=== PATIENT | female | born 1980 | race African-American/Black ===

== ENCOUNTER 2018-08-24 09:27 | Emergency (ER) | payer OTHER ==
[2018-08-24 09:47] VITALS: BP 120/81; PULSE 90; TEMP 98.7; BMI 36.0
--- NOTE | 2018-08-24 10:44 | PDOC ---
History of Present Illness - General Chief Complaint: Pain Stated Complaint: PAIN Time Seen by Provider: 08/24/18 10:10 - History of Present Illness Initial Comments: 08/24/18 10:45 The patient is a 38 year old female with no significant PMH who presents to the emergency department with abdominal bloating for the past three months. The patient notes the abdominal bloating is not exacerbated with eating. The patient states she initially had some nausea at the onset of this abdominal bloating that has since resolved for 2 months. She denies any abdominal pain. Patient reports gaining 10-15 pounds over the past two months but states the bloating is unusual for her. Patient denies starting any new diets. Patient had a home which was negative. Patient also had a negative test at the [facility] on 07/29/18. Patient recently saw her PCP for these symptoms and was referred to [facility] [facility]. The [facility] TRAINING REPRESENTATIVE did a pelvic sonogram on 08/10/18 which showed hetergenous echogenity of the uterus but was otherwise normal (pt has report). Last bowel movement was this morning, and was normal. Patient's last menstrual period was 08/13/18. Patient denies any abdominal surgeries in the past. No change in severity or quality of the distention recently. She presents today as she is concerned she is and her home test may not be accurate. The patient denies chest pain, shortness of breath, headache and dizziness. Denies fever, chills, nausea, vomit, diarrhea and constipation. Denies dysuria, frequency, urgency and hematuria. Allergies: NKA Past surgical history: elective . Social history: No reported alcohol, drug, or cigarette use. PCP: [facility]. Past History - Past Medical History Allergies/Adverse Reactions: Allergies Allergy/AdvReac Type Severity Reaction Status Date / Time No Known Allergies Allergy Verified 08/24/18 09:44 Home Medications: Ambulatory Orders No Home Medications 0 dose .ROUTE UTDICT 02/12/13 COPD: No - Immunization History Td Vaccination: No - Suicide/Smoking/Psychosocial Hx Smoking Status: No Smoking History: Never smoked Number of Cigarettes Smoked Daily: 0 Drug/Substance Use Hx: No Substance Use Type: None Review of Systems - Review of Systems Comments:: 08/24/18 10:53 GENERAL/CONSTITUTIONAL: No fever or chills. No weakness. HEAD, EYES, EARS, NOSE AND THROAT: No change in vision. No ear pain or discharge. No sore throat. GASTROINTESTINAL: No nausea, vomiting, diarrhea or constipation. (+) abdominal bloating GENITOURINARY: No dysuria, frequency, or change in urination. CARDIOVASCULAR: No chest pain or shortness of breath. RESPIRATORY: No cough, wheezing, or hemoptysis. MUSCULOSKELETAL: No joint or muscle swelling or pain. No neck or back pain. SKIN: No rash NEUROLOGIC: No headache, vertigo, loss of consciousness, or change in strength/ sensation. ENDOCRINE: No increased thirst. No abnormal weight change. HEMATOLOGIC/LYMPHATIC: No anemia, easy bleeding, or history of blood clots. ALLERGIC/IMMUNOLOGIC: No hives or skin allergy. *Physical Exam - Vital Signs Last Vital Signs Temp Pulse Resp BP Pulse Ox 98.7 F 90 18 120/81 99 08/24/18 09:44 08/24/18 09:44 08/24/18 09:44 08/24/18 09:44 08/24/18 09:44 - Physical Exam Comments: 08/24/18 10:55 GENERAL: Awake, alert, and fully oriented, in no acute distress HEAD: No signs of trauma EYES: PERRLA, EOMI, sclera anicteric, conjunctiva clear ENT: Auricles normal inspection, hearing grossly normal, nares patent, oropharynx clear without exudates. Moist mucosa NECK: Normal ROM, supple, no lymphadenopathy, JVD, or masses LUNGS: Breath sounds equal, clear to auscultation bilaterally. No wheezes, and no crackles HEART: Regular rate and rhythm, normal S1 and S2, no murmurs, rubs or gallops ABDOMEN: Soft, nontender, nondistended, normoactive bowel sounds. No guarding, no rebound. No masses. No CVAT. EXTREMITIES: Normal range of motion, no edema. No clubbing or cyanosis. No cords , erythema, or tenderness BACK: No midline spinal tenderness in cervical/thoracic/lumbar region NEUROLOGICAL: Normal speech, cranial nerves intact, negative pronator drift, 5/ 5 strength in all 4 extremities, normal sensation to light touch in all 4 extremities, normal cerebellar exam, normal gait, normal reflexes and tone SKIN: Warm, Dry, normal turgor, no rashes or lesions noted." ED Treatment Course - LABORATORY CBC & Chemistry Diagram: 08/24/18 10:35 08/24/18 10:35 Medical Decision Making - Medical Decision Making 08/24/18 10:00 38yo F presents to the ED 3 months of abdominal distention, concern for . Vitals/exam wnl. Unclear cause of bloating, could be food allergy, but will check basic labs, UA, UPT, AXR and reassess. Pt has no pain, declines meds. 08/24/18 11:00 CBC wnl UA wnl remaining labs/UPT pending Pt does not wish to stay for further test results and re-eval as she has to "pick someone up, and thought this would be a quick in and out visit." The patient is clinically sober, free from distracting injury, appears to have intact insight and judgment and reason and in my opinion has the capacity to make decisions. The patient presents with abd distention. I have explained that I am concerned that this may represent or other acute pathology; she has verbalized an understanding of my concerns. I have told the patient that while her labs thusfar were normal, there could still be an abnormal result pending. I have discussed the need to wait for labs/diagnostics to get more information about potential causes of the patients distention. I have told the patient that if she leaves and has continued symptoms, she could get much worse , could become critically ill, and could possibly become disabled or . I have asked them to stay in the hospital for serial abd exams. The patient is not willing to wait for her results and re-evaluation. She is refusing any further care and is leaving against medical advice. I am unable to convince the patient to stay, I have asked her to return as soon as possible to complete their evaluation. I have answered all their questions. *DC/Admit/Observation/Transfer Diagnosis at time of Disposition: Abdominal distention - Discharge Dispostion Disposition: AGAINST MEDICAL ADVICE Condition at time of disposition: Stable Decision to Admit order: No - Referrals Referrals: Tyrese Bergeron [Primary Care Provider] - Moses Kaufman MD [Staff Physician] - - Patient Instructions Additional Instructions: You are leaving against medical advice. This puts you at risk for worsening symptoms, disability, or . Return at any time to complete your evaluation. A referral to the GI (orange peel operator) has been provided for further evaluation of your symptoms. Follow up within 1 week. Return to the emergency department if you have any new, worsening, or concerning symptoms. - Post Discharge Activity - Attestations Physician Attestion: 08/24/18 11:10 I, Dr. Dami Morris MD, attest that this document has been prepared under my direction and personally reviewed by me in its entirety. I further attest, that it accurately reflects all work, treatment, procedures and medical decision -making performed by me.
[2018-08-24 10:45] LABS: BASO % 0.6 % (0-2.0); EOS % 0.3 % (0-4.5); HEMATOCRIT 34.7 % (32.4-45.2); HEMOGLOBIN 11.7 GM/dL (10.7-15.3); LYMPH % 37.3 % (8-40); MCH 28.2 pg (25.7-33.7); MCHC 33.7 g/dl (32.0-36.0); MEAN CELL VOLUME 83.6 fl (80-96); MEAN PLT VOLUME 8.1 fl (7.5-11.1); MONO % 6.1 % (3.8-10.2); NEUT % 55.7 % (42.8-82.8); PLATELET COUNT 294 K/MM3 (134-434); RBC 4.15 M/mm3 (3.60-5.2); RDW 13.9 % (11.6-15.6); WHITE BLOOD COUNT 5.8 K/mm3 (4.0-10.0)
[2018-08-24 10:54] LABS: URINE APPEARANCE CLEAR; URINE BILIRUBIN NEGATIVE (<2.0 mg/dL); URINE COLOR LTYELLOW; URINE GLUCOSE (UA) NEGATIVE (NEGATIVE); URINE KETONE NEGATIVE (NEGATIVE); URINE LEUK ESTERASE TRACE (NEGATIVE); URINE NITRITE NEGATIVE (NEGATIVE); URINE PROTEIN NEGATIVE (NEGATIVE); URINE UROBILINOGEN NEGATIVE mg/dL (0.2-1.0)
[2018-08-24 10:59] LABS: EPI CELLS RARE /HPF (FEW); URINE MUCUS RARE
[2018-08-24 11:23] LABS: ALBUMIN 3.6 g/dl (3.4-5.0); ALK PHOS 101 U/L (45-117); ANION GAP 3 MMOL/L (8-16); BILIRUBIN,TOTAL 0.4 mg/dL (0.2-1); BLOOD UREA NITROGEN 12 mg/dL (7-18); CALCIUM 9.2 mg/dL (8.5-10.1); CHLORIDE 107 mmol/L (98-107); CO2 28 mmol/L (21-32); CREATININE 0.6 mg/dL (0.55-1.3); GLUCOSE,RANDOM 91 mg/dL (74-106); LIPASE 60 U/L (73-393); POTASSIUM 3.7 mmol/L (3.5-5.1); SGOT/AST 20 U/L (15-37); SGPT/ALT 30 U/L (13-61); SODIUM 138 mmol/L (136-145); TOT PROT 7.3 g/dl (6.4-8.2)
== END 2018-08-24 11:00 | disposition left against medical advice (07) ==
LOC: JER 09:27
DX: R14.0 Abdominal distension (gaseous) (principal)
CPT/HCPCS: 36415; 80053; 81003; 81015; 83690; 84702; 84703; 85025; 87086; 99282-25

== ENCOUNTER 2021-09-18 13:51 | Emergency (ER) | payer SELFPAY ==
[2021-09-18 14:06] VITALS: BP 131/78; PULSE 93; TEMP 97.8; BMI 37.3
== END 2021-09-18 17:42 | disposition home or self-care (01) ==
LOC: JERFT 13:51
CPT/HCPCS: 84703; 99283-25